=== PATIENT | female | born 1945 | race Hispanic/Latino ===

== ENCOUNTER 2017-08-26 21:54 | Emergency (ER) | payer MEDICARE ==
[2017-08-26 22:57] LABS: Hematocrit 37.9 % (30.3-42.9); Mean Corpuscular HGB Conc 34 % (30-34); Mean Corpuscular Hemoglobin 32 pg (28-32); Mean Corpuscular Volume 93 fl (79-97); Red Blood Count 4.08 M/mm3 (3.65-5.03); Red Cell Distribution Width 14.1 % (13.2-15.2)
--- NOTE | 2017-08-26 22:58 | Cat Scan Report ---
FINAL REPORT EXAM: CT HEAD/BRAIN WO CON HISTORY: headache COMPARISON: None available. TECHNIQUE: Axial images obtained skull base through vertex. FINDINGS: No acute intracranial hemorrhage, midline shift or pathologic extra axial fluid collection. Age related volume loss with compensatory dilatation of the ventricular system and chronic small vessel ischemic disease. Otherwise, perez-white differentiation preserved. Calvarium grossly intact. Mild to moderate mucosal thickening of the paranasal sinuses. Mastoid air cells are clear. Prior cataract surgery. IMPRESSION: No grossly acute intracranial abnormality. Mild age related volume loss and chronic small vessel ischemic disease.
--- NOTE | 2017-08-26 23:19 | XRay Report ---
FINAL REPORT EXAM: XR SPINE CERVICAL 2-3V HISTORY: neck pain COMPARISON: None available. FINDINGS: Three views of the cervical spine obtained. Cervical vertebral body heights are preserved. Moderate loss of disc height C4-C5 through C6-C7 levels with endplate osteophyte. Mild loss of disc height endplate osteophyte C3-C4 level. Odontoid process grossly intact. IMPRESSION: Moderate degenerative changes.
[2017-08-26 23:34] LABS: Bilirubin,Urine NEG (Negative); Blood,Urine SM (Negative); Color,Urine Yellow (Yellow); Mucus,Urine FEW /HPF; Protein,Urine <15 mg/dL mg/dL (Negative); Urobilinogen,Urine < 2.0 mg/dL (<2.0)
[2017-08-26 23:36] LABS: Alanine Aminotransferase 34 units/L (7-56); Albumin 3.6 g/dL (3.9-5); BUN/Creatinine Ratio 27; Blood Urea Nitrogen 19 mg/dL (7-17); Calcium 8.7 mg/dL (8.4-10.2); Hemolysis Index 1
[2017-08-26 23:42] LABS: Amphetamine Screen,Urine PRESUMPTIVE NEGATIVE; Benzodiazepines Screen,Urine PRESUMPTIVE NEGATIVE; Cannabinoid Screen,Urine PRESUMPTIVE NEGATIVE; Cocaine Screen,Urine PRESUMPTIVE NEGATIVE; Methadone Screen,Urine PRESUMPTIVE NEGATIVE; Opiate Screen,Urine PRESUMPTIVE NEGATIVE
--- NOTE | 2017-08-27 00:02 | Emergency Department Report ---
HPI - General Chief Complaint: Medical Clearance Time Seen by Provider: 08/26/17 22:22 - HPI HPI: The patient is an 72-year-old female who presents from [place] for evaluation of head injury status post fall. Per facility staff the patient experienced episode of agitation difficulty with both the acute complication with staff at which time she fell and struck her head on the ground. She complains of a mild achy frontal headache constant since her fall 30 minutes prior to arrival. She denies neck pain, chest pain, back pain, present to the extremities, abdominal pain, dysuria, nausea, vomiting, paresthesia, motor deficit. ED Past Medical Hx - Past Medical History Previous Medical History?: No Additional medical history: Bipoplar - Surgical History Past Surgical History?: No - Social History Smoking Status: Never Smoker Substance Use Type: Prescribed ED Review of Systems ROS: Stated complaint: FALL/HEAD INJURY Other details as noted in HPI Constitutional: denies: fever ENT: denies: throat or neck pain Respiratory: denies: cough, shortness of breath Cardiovascular: denies: chest pain Endocrine: denies unexplained weight loss or gain Gastrointestinal: denies: abdominal pain, nausea Genitourinary: denies: dysuria Musculoskeletal: denies: leg swelling Skin: denies: rash Neurological: reports headache Hematological/Lymphatic: denies: easy bleeding or easy bruising Psych: denies sadness or hopelessness Physical Exam - Physical Exam Vital Signs: Vital Signs 08/26/17 22:10 Temperature 98.0 F Pulse Rate 92 H Blood Pressure 146/85 O2 Sat by Pulse 96 Oximetry Physical Exam: General: well-nourished, well-developed, no acute distress Head: Normocephalic, recently about 3 cm lip upper forehead contusion present Eyes: normal sclera , PERRL, EOM intact, ENT: Mucous membranes are pink and moist Neck: trachea midline, neck supple, No neck stiffness, no cervical adenopathy Respiratory: Breath sounds equal bilaterally, no wheezing, rales, or rhonchi Cardio: S1 and S2 present, no murmurs, rubs, gallops, capillary refill is brisk Abdomen: Normoactive bowel sounds, soft abdomen, no tenderness Chest WALL/Back: No tenderness to palpation of the chest wall, no CVA tenderness with percussion, no flank ecchymosis/bruising Musc: No pitting edema Skin: No rash Neuro: alert oriented x4, normal cognition, speech normal no facial drooping, no uvula or tongue deviation on protrusion, no deficit with rotation of neck or shoulder shrug, no obvious gross motor deficit in the upper or lower extremities with flexion or extension at the shoulder, elbow, wrist, hip, knee, or ankle bilaterally, no obvious gross sensation deficit to crude touch or 2 pt discrimination, 2+ symmetric reflexes on DTR testing, no coordination deficit with [id number] or [id number] testing, babinski downgoing, Psych: Normal affect ED Course Vital Signs 08/26/17 22:10 Temperature 98.0 F Pulse Rate 92 H Blood Pressure 146/85 O2 Sat by Pulse 96 Oximetry ED Medical Decision Making - Lab Data Result diagrams: 08/26/17 22:32 08/26/17 22:32 - Medical Decision Making The patient was seen and examined by myself. The patient is placed on a ekg monitor tech and continuous pulse ox. On initial evaluation, the patient was found to be in no distress. Evaluation orders were placed. The patient is given time for her pain. Patient wanted normal saline fluid bolus and her dehydration. Lab results are grossly unremarkable. CT scan the head is negative for acute intracranial disease process. X-ray of the cervical spine is unremarkable. The patient was reevaluated and reported that their symptoms were markedly improved. The patient is stable for discharge with outpatient follow-up. The patient is given follow-up and return instructions. The patient expressed understanding and agreed with the plan. The patient is discharged in stable condition. Critical care attestation.: If time is entered above; I have spent that time in minutes in the direct care of this critically ill patient, excluding procedure time. ED Disposition Clinical Impression: Acute post-traumatic headache, not intractable, Dehydration Forehead contusion Qualifiers: Encounter type: initial encounter Qualified Code(s): S00.83XA - Contusion of other part of head, initial encounter Disposition: - TO HOME OR SELFCARE Is pt being admited?: No Does the pt Need Aspirin: No Condition: Stable Instructions: Acute Headache (ED), Contusion in Adults (ED) Referrals: [facility] [Outside] - 3-5 Days Time of Disposition: 00:10
[2017-08-27 00:04] LABS: Anisocytosis 1+; Basophils % (Manual) 0 % (0.0-1.8); Total Cells Counted 100
[2017-08-27 00:05] LABS: Platelet Clumps 2+
[2017-08-27] MEDS ORDERED: NACL 0.9% 1000 ML 1,000 ML IV ONE (00:05)
[2017-08-27] MEDS ORDERED: TYLENOL PO ONE (00:09)
[2017-08-27 01:24] LABS: Platelet Count 150 K/mm3 (140-440)
[2017-08-27 04:20] VITALS: BP 136/78
== END 2017-08-27 04:57 | disposition home or self-care (01) ==
LOC: ED 21:54
DX: S00.83XA Contusion of other part of head, initial encounter (principal); E86.0 Dehydration; W18.30XA Fall on same level, unspecified, initial encounter; Y93.89 Activity, other specified; Y92.89 Other specified places as the place of occurrence of the external cause; Y99.8 Other external cause status
CPT/HCPCS: 36415; 70450; 72040; 80053; 80307; 81001; 82550; 85007; 85025; 93005; 93010; 96360; 99285; G0480; J7030; 80320